=== PATIENT | female | born 1975 | race Caucasian/White ===

== ENCOUNTER → 2018-06-28 | Outpatient (REF) | payer MEDICARE, MEDICAID ==
[2018-06-28 14:18] LABS: VALPROIC ACID (DEPAKOTE) 70.8 UG/ML (50.0-100.0)
== END ==
LOC: M LAB REF 11:54
DX: F25.9 Schizoaffective disorder, unspecified (principal)
CPT/HCPCS: 80164

== ENCOUNTER → 2019-10-13 | Outpatient (CLI) | payer MEDICARE, MEDICAID ==
[2019-10-13 13:53] LABS: ALBUMIN 3.2 GM/DL (3.2-5.2); ALT/SGPT 28 U/L (12-78); BILIRUBIN,TOTAL 0.4 MG/DL (0.2-1.0); BLOOD UREA NITROGEN 9 MG/DL (7-18); CALCIUM LEVEL 8.1 MG/DL (8.5-10.1); CARBON DIOXIDE LEVEL 26 MEQ/L (21-32); CHLORIDE LEVEL 106 MEQ/L (98-107); GLOMERULAR FILTRATION RATE > 60.0 (>58); GLUCOSE, FASTING 92 MG/DL (70-100); POTASSIUM SERUM 4.4 MEQ/L (3.5-5.1); SODIUM LEVEL 140 MEQ/L (136-145); TOTAL PROTEIN 6.7 GM/DL (6.4-8.2)
[2019-10-13 14:36] LABS: HEMOGLOBIN A1c 5.7 %
== END ==
LOC: M PLALAB 09:55
PROVIDERS: ATTEND Nurse Practitioner Psychiatric/Mental Health
DX: F25.9 Schizoaffective disorder, unspecified (principal); Z79.899 Other long term (current) drug therapy

== ENCOUNTER 2022-05-29 00:07 | Inpatient (IN) | payer MEDICARE, MEDICAID ==
[~2022-05-29] VITALS: Ht 170.2 cm; Wt 72.5 kg
[2022-05-29 00:55] LABS: HEMATOCRIT 43.2 % (36.0-47.0); HEMOGLOBIN 14.7 g/dl (12.0-15.5); MEAN CORPUSCULAR HEMOGLOBIN 30.4 pg (27.0-33.0); MEAN CORPUSCULAR VOLUME 89.4 fl (80.0-96.0); PLATELET COUNT, AUTOMATED 234 10^3/uL (150-450); RED BLOOD COUNT 4.83 10^6/uL (4.00-5.40); WHITE BLOOD COUNT 9.3 10^3/uL (4.0-10.0)
[2022-05-29 01:26] LABS: HCG, SERUM QUALITATIVE NEGATIVE (NEGATIVE)
[2022-05-29 01:27] LABS: RSV AMPLIFICATION NEGATIVE (NEGATIVE)
[2022-05-29 01:32] LABS: ACETAMINOPHEN LEVEL < 2.0 UG/ML (10.0-30.0); ALBUMIN 3.8 GM/DL (3.2-5.2); ALT/SGPT 24 U/L (12-78); BILIRUBIN,DIRECT < 0.1 MG/DL (0.0-0.2); BILIRUBIN,TOTAL 0.2 MG/DL (0.2-1.0); BLOOD UREA NITROGEN 9 MG/DL (7-18); CALCIUM LEVEL 8.8 MG/DL (8.5-10.1); CARBON DIOXIDE LEVEL 23 MEQ/L (21-32); CHLORIDE LEVEL 109 MEQ/L (98-107); CREATININE FOR GFR 0.82 MG/DL (0.55-1.30); ETHYL ALCOHOL (ETHANOL) < 0.003 % (0.000-0.010); GLOMERULAR FILTRATION RATE > 60.0 (>58); GLUCOSE, FASTING 141 MG/DL (70-100); SALICYLATE LEVEL 18.9 MG/DL (5.0-30.0); SODIUM LEVEL 140 MEQ/L (136-145); THYROID STIMULATING HORMONE 0.661 uIU/ML (0.358-3.740); TOTAL PROTEIN 7.1 GM/DL (6.4-8.2)
[2022-05-29 01:54] LABS: AMPHETAMINES LEVEL URINE NEGATIVE (NEGATIVE); BARBITURATES URINE NEGATIVE (NEGATIVE); BENZODIAZEPINES URINE NEGATIVE (NEGATIVE); CANNABINOIDS URINE POSITIVE (NEGATIVE); COCAINE METABOLITE URINE NEGATIVE (NEGATIVE); METHADONE URINE NEGATIVE (NEGATIVE); OPIATES URINE NEGATIVE (NEGATIVE); PHENCYCLIDINE URINE NEGATIVE (NEGATIVE)
[2022-05-29] MEDS ORDERED: OLANZapine ORAL DISINTEGRATING TAB 5MG PO ONE (21:30)
[2022-05-30] MEDS ORDERED: LORazepam 2 MG TAB PO ONE (06:00)
[2022-05-30] MEDS ORDERED: OLANZapine ORAL DISINTEGRATING TAB 5MG PO ONE (06:00)
[2022-05-31] MEDS ORDERED: LORazepam 2 MG TAB PO STA (01:38)
[2022-05-31] MEDS ORDERED: HOME MED LIST COMPLETE! XX SCH (10:15)
[2022-05-31] MEDS ORDERED: OLANZapine 10 MG TAB PO ONE (19:25)
[2022-05-31] MEDS ORDERED: IBUPROFEN 600MG TAB PO ONE (19:25)
[2022-05-31] MEDS ORDERED: ALPRAZolam 0.5 MG TAB PO ONE (19:25)
[2022-06-05] MEDS ORDERED: LORazepam 2 MG/ML VIAL IM STA (08:22)
[2022-06-05] MEDS ORDERED: LORazepam 2 MG TAB PO ONE (08:25)
[2022-06-05] MEDS ORDERED: OLANZapine ORAL DISINTEGRATING TAB 5MG PO ONE (08:25)
[2022-06-05] MEDS ORDERED: diphenhydrAMINE 50MG/ML VIAL (J1200) IM ONE (08:25)
[2022-06-05] MEDS ORDERED: HALOPERIDOL 5MG/ML VIAL (J1630 PER 1) IM ONE (08:25)
[2022-06-05] MEDS ORDERED: LORazepam 2 MG TAB PO STA (15:48)
[2022-06-06] MEDS ORDERED: LORazepam 2 MG TAB PO ONE ×2 (04:40→07:50)
[2022-06-06] MEDS ORDERED: OLANZapine ORAL DISINTEGRATING TAB 5MG PO ONE (07:50)
[2022-06-06 12:07] LABS: RSV AMPLIFICATION NEGATIVE (NEGATIVE)
[2022-06-06] MEDS ORDERED: MAALOX 30 ML SUSP *UDC PO PRN (12:10)
[2022-06-06] MEDS ORDERED: MOM 30ML SUSPENSION UDC PO PRN (12:10)
[2022-06-06] MEDS: LORazepam 1 MG TAB PO PRN (14:28)
[2022-06-07 06:26] VITALS: BP 137/66
[2022-06-07] MEDS: NEOSPORIN TOP OINT 15GM TOP SCH ×2 (12:49→21:31)
[2022-06-07 16:01] VITALS: BP 130/60
[2022-06-07] MEDS: LORazepam 1 MG TAB PO PRN (19:14)
[2022-06-07] MEDS: PALIPERIDONE 3 MG ER TAB (INVEGA) PO SCH (21:31)
[2022-06-07] MEDS: DIVALPROEX 250 MG TAB PO SCH (21:31)
[2022-06-07] MEDS: ACETAMINOPHEN TAB 650MG DOSE (2X325MG) PO PRN (21:32)
[2022-06-08 06:22] VITALS: BP 115/58
[2022-06-08] MEDS: NEOSPORIN TOP OINT 15GM TOP SCH ×2 (09:30→22:39)
[2022-06-08] MEDS: ACETAMINOPHEN TAB 650MG DOSE (2X325MG) PO PRN (09:32)
[2022-06-08] MEDS: PALIPERIDONE 3 MG ER TAB (INVEGA) PO SCH ×2 (09:32→22:38)
[2022-06-08] MEDS: DIVALPROEX 250 MG TAB PO SCH ×2 (09:32→22:38)
[2022-06-09 07:01] VITALS: BP 131/78
[2022-06-09] MEDS: DIVALPROEX 250 MG TAB PO SCH ×2 (09:00→10:17)
[2022-06-09] MEDS: NEOSPORIN TOP OINT 15GM TOP SCH ×2 (10:17→20:28)
[2022-06-09 16:31] VITALS: BP 138/68
[2022-06-09] MEDS: DIVALPROEX 500 MG TAB PO SCH (20:27)
[2022-06-10 06:15] VITALS: BP 166/88
[2022-06-10] MEDS: DIVALPROEX 250 MG TAB PO SCH (08:37)
[2022-06-10] MEDS: NEOSPORIN TOP OINT 15GM TOP SCH ×2 (08:40→21:00)
[2022-06-10] MEDS: ACETAMINOPHEN TAB 650MG DOSE (2X325MG) PO PRN (12:06)
[2022-06-10] MEDS: LORazepam 1 MG TAB PO PRN (14:52)
[2022-06-10 16:24] VITALS: BP 133/60
[2022-06-10] MEDS: DIVALPROEX 500 MG TAB PO SCH (22:21)
[2022-06-10] MEDS: traZODone 50 MG TAB PO PRN (22:21)
[2022-06-11] MEDS: NEOSPORIN TOP OINT 15GM TOP SCH ×2 (09:36→20:42)
[2022-06-11] MEDS: DIVALPROEX 250 MG TAB PO SCH (09:37)
[2022-06-11] MEDS: DIVALPROEX 500 MG TAB PO SCH (20:42)
[2022-06-12] MEDS: DIVALPROEX 250 MG TAB PO SCH (09:35)
[2022-06-12] MEDS: NEOSPORIN TOP OINT 15GM TOP SCH ×2 (09:36→22:12)
[2022-06-12] MEDS: ACETAMINOPHEN TAB 650MG DOSE (2X325MG) PO PRN (10:42)
[2022-06-12] MEDS: LORazepam 2 MG TAB PO PRN (17:29)
[2022-06-12 17:38] VITALS: BP 168/72
[2022-06-12] MEDS: DIVALPROEX 500 MG TAB PO SCH (22:11)
[2022-06-13] MEDS: NEOSPORIN TOP OINT 15GM TOP SCH ×2 (09:00→20:12)
[2022-06-13] MEDS: DIVALPROEX 500 MG TAB PO SCH ×2 (09:41→20:12)
[2022-06-13] MEDS: ACETAMINOPHEN TAB 650MG DOSE (2X325MG) PO PRN (09:45)
[2022-06-13] MEDS: LORazepam 2 MG TAB PO PRN (11:08)
[2022-06-13 18:24] VITALS: BP 127/59
[2022-06-14] MEDS: DIVALPROEX 500 MG TAB PO SCH ×2 (08:39→22:30)
[2022-06-14] MEDS: LORazepam 2 MG TAB PO PRN (15:46)
[2022-06-14] MEDS: ACETAMINOPHEN TAB 650MG DOSE (2X325MG) PO PRN (15:47)
[2022-06-14 18:27] VITALS: BP 136/71
[2022-06-14] MEDS: traZODone 50 MG TAB PO PRN (22:30)
[2022-06-15 06:35] VITALS: BP 123/63
[2022-06-15] MEDS: DIVALPROEX 500 MG TAB PO SCH ×2 (13:47→21:05)
[2022-06-15] MEDS: diphenhydrAMINE 50MG CAP PO PRN (15:12)
[2022-06-15] MEDS: LORazepam 2 MG TAB PO PRN (15:41)
[2022-06-15 18:46] VITALS: BP 144/65
[2022-06-16 07:05] VITALS: BP 142/72
[2022-06-16] MEDS: DIVALPROEX 500 MG TAB PO SCH ×2 (10:23→20:43)
[2022-06-16] MEDS: LORazepam 2 MG TAB PO PRN (10:24)
[2022-06-16] MEDS: ACETAMINOPHEN TAB 650MG DOSE (2X325MG) PO PRN ×2 (10:24→20:44)
[2022-06-16] MEDS: diphenhydrAMINE 50MG CAP PO PRN ×2 (10:26→20:43)
[2022-06-16 18:34] VITALS: BP 136/68
[2022-06-17 06:35] VITALS: BP 125/59
[2022-06-17] MEDS: DIVALPROEX 500 MG TAB PO SCH ×2 (08:16→21:52)
[2022-06-17] MEDS: diphenhydrAMINE 50MG CAP PO PRN ×2 (08:16→14:33)
[2022-06-17] MEDS: ACETAMINOPHEN TAB 650MG DOSE (2X325MG) PO PRN ×2 (13:58→21:05)
[2022-06-17 18:34] VITALS: BP 140/74
[2022-06-17] MEDS: LORazepam 2 MG TAB PO PRN (19:39)
[2022-06-18] MEDS: diphenhydrAMINE 50MG CAP PO PRN ×3 (06:21→20:58)
[2022-06-18] MEDS: ACETAMINOPHEN TAB 650MG DOSE (2X325MG) PO PRN ×3 (06:22→20:58)
[2022-06-18 07:05] VITALS: BP 114/55
[2022-06-18] MEDS: DIVALPROEX 500 MG TAB PO SCH ×2 (14:27→20:58)
[2022-06-18 18:31] VITALS: BP 136/74
[2022-06-19] MEDS: DIVALPROEX 500 MG TAB PO SCH ×2 (09:42→20:28)
[2022-06-19] MEDS: diphenhydrAMINE 50MG CAP PO PRN ×2 (09:46→17:04)
[2022-06-19] MEDS: ACETAMINOPHEN TAB 650MG DOSE (2X325MG) PO PRN ×2 (09:46→17:06)
[2022-06-19 16:29] VITALS: BP_SYST 133; BP_SYST 140; BP_DIAS 67; BP_DIAS 80
[2022-06-19] MEDS: LORazepam 2 MG TAB PO PRN (18:27)
[2022-06-19] MEDS ORDERED: NICOTINE 21MG/24HR 1 EA TRANSDERMAL TD PRN (20:25)
[2022-06-20 06:27] VITALS: BP 120/60
[2022-06-20] MEDS: DIVALPROEX 500 MG TAB PO SCH ×2 (08:12→21:39)
[2022-06-20] MEDS: ACETAMINOPHEN TAB 650MG DOSE (2X325MG) PO PRN (12:05)
[2022-06-20] MEDS: diphenhydrAMINE 50MG CAP PO PRN (12:06)
[2022-06-20] MEDS: NICOTINE POLACRILEX 2 MG GUM PO PRN (12:59)
[2022-06-21] MEDS: DIVALPROEX 500 MG TAB PO SCH ×2 (09:52→20:02)
[2022-06-21] MEDS: NICOTINE POLACRILEX 2 MG GUM PO PRN (16:26)
[2022-06-21] MEDS: BENZTROPINE 1 MG TAB PO PRN (18:04)
[2022-06-21] MEDS: traZODone 50 MG TAB PO PRN (20:17)
[2022-06-21] MEDS: diphenhydrAMINE 50MG CAP PO PRN (20:33)
[2022-06-22] MEDS: BENZTROPINE 1 MG TAB PO PRN (08:09)
[2022-06-22] MEDS: DIVALPROEX 500 MG TAB PO SCH (08:10)
[2022-06-22] MEDS ORDERED: HALO10TA20 PO ×2 (09:44)
[2022-06-22] MEDS ORDERED: DEPA1TAB3 PO ×2 (09:44)
[2022-06-22] MEDS ORDERED: TRAZ-252 PO (09:44)
[2022-06-22] MEDS ORDERED: BENZ-52 PO (09:44)
== END 2022-06-22 12:26 | disposition home or self-care (01) | DRG 885 ==
LOC: M ED 00:07 → M ED INP 00:09 → M PSY 06-06 14:55
PROVIDERS: ADMIT Psychiatry & Neurology Psychiatry; ATTEND Psychiatry & Neurology Psychiatry
DX: F29 Unspecified psychosis not due to a substance or known physiological condition (principal); F31.2 Bipolar disorder, current episode manic severe with psychotic features; Z87.891 Personal history of nicotine dependence; R45.850 Homicidal ideations; L20.9 Atopic dermatitis, unspecified; F41.9 Anxiety disorder, unspecified

== ENCOUNTER 2022-08-06 11:42 | Emergency (ER) | payer MEDICARE, MEDICAID ==
[~2022-08-06] VITALS: Ht 170.2 cm; Wt 100.7 kg
[~2022-08-06 11:42] MED LIST: BENZ-52 PO; DEPA1TAB3 PO; HALO10TA20 PO; TRAZ-252 PO
[2022-08-06 11:43] VITALS: BP 148/79
[2022-08-07] MEDS ORDERED: BENZ-52 PO (08:13)
[2022-08-07] MEDS ORDERED: HALO10TA20 PO (08:13)
[2022-08-07] MEDS ORDERED: DIVA500T94 PO (08:13)
[2022-08-07] MEDS ORDERED: TRAZ1TAB10 PO (08:13)
[2022-08-07] MEDS ORDERED: HALO5TAB33 PO (08:13)
== END 2022-08-06 11:56 | disposition left against medical advice (07) ==
LOC: M ED 11:42
DX: Z53.21 Procedure and treatment not carried out due to patient leaving prior to being seen by health care provider (principal)

== ENCOUNTER 2022-08-06 17:50 | Inpatient (IN) | payer MEDICARE, MEDICAID ==
[~2022-08-06] VITALS: Ht 170.2 cm; Wt 99.4 kg
[2022-08-06] MEDS ORDERED: traZODone 50 MG TAB PO ONE (19:45)
[2022-08-06 19:55] LABS: AMPHETAMINES LEVEL URINE NEGATIVE (NEGATIVE); BARBITURATES URINE NEGATIVE (NEGATIVE); BENZODIAZEPINES URINE NEGATIVE (NEGATIVE); CANNABINOIDS URINE POSITIVE (NEGATIVE); COCAINE METABOLITE URINE NEGATIVE (NEGATIVE); METHADONE URINE NEGATIVE (NEGATIVE); OPIATES URINE NEGATIVE (NEGATIVE); PHENCYCLIDINE URINE NEGATIVE (NEGATIVE)
[2022-08-06 19:57] LABS: HEMOGLOBIN 14.4 g/dl (12.0-15.5); MEAN CORPUSCULAR HGB CONC 35.1 g/dl (32.0-36.5); MEAN CORPUSCULAR VOLUME 88.2 fl (80.0-96.0); PLATELET COUNT, AUTOMATED 243 10^3/uL (150-450); RED BLOOD COUNT 4.65 10^6/uL (4.00-5.40); WHITE BLOOD COUNT 10.1 10^3/uL (4.0-10.0)
[2022-08-06 20:27] LABS: RSV AMPLIFICATION NEGATIVE (NEGATIVE)
[2022-08-06 20:32] LABS: ACETAMINOPHEN LEVEL < 2.0 UG/ML (10.0-30.0); ALBUMIN 3.4 GM/DL (3.2-5.2); ALT/SGPT 20 U/L (12-78); BILIRUBIN,DIRECT 0.1 MG/DL (0.0-0.2); BILIRUBIN,TOTAL 0.4 MG/DL (0.2-1.0); BLOOD UREA NITROGEN 5 MG/DL (7-18); CALCIUM LEVEL 8.4 MG/DL (8.5-10.1); CARBON DIOXIDE LEVEL 24 MEQ/L (21-32); CHLORIDE LEVEL 100 MEQ/L (98-107); CREATININE FOR GFR 0.59 MG/DL (0.55-1.30); ETHYL ALCOHOL (ETHANOL) 0.094 % (0.000-0.010); GLOMERULAR FILTRATION RATE > 60.0 (>58); GLUCOSE, FASTING 120 MG/DL (70-100); POTASSIUM SERUM 3.8 MEQ/L (3.5-5.1); SALICYLATE LEVEL 4.6 MG/DL (5.0-30.0); SODIUM LEVEL 134 MEQ/L (136-145); THYROID STIMULATING HORMONE 0.612 uIU/ML (0.358-3.740); TOTAL PROTEIN 7.2 GM/DL (6.4-8.2)
[2022-08-06] MEDS ORDERED: DIVALPROEX 500 MG TAB PO ONE (22:05)
[2022-08-07] MEDS ORDERED: TRAZ1TAB10 PO (08:13)
[2022-08-07] MEDS ORDERED: HALO10TA20 PO (08:13)
[2022-08-07] MEDS ORDERED: HALO5TAB33 PO (08:13)
[2022-08-07] MEDS ORDERED: BENZ-52 PO (08:13)
[2022-08-07] MEDS ORDERED: DIVA500T94 PO (08:13)
[2022-08-07] MEDS ORDERED: HOME MED LIST COMPLETE! XX SCH (08:15)
[2022-08-07] MEDS: BENZTROPINE 1 MG TAB PO SCH ×2 (08:32→21:03)
[2022-08-07] MEDS: DIVALPROEX 500 MG TAB PO SCH (21:02)
[2022-08-08] MEDS: traZODone 50 MG TAB PO PRN (04:51)
[2022-08-08] MEDS ORDERED: NICOTINE 14 MG/24 HR TRANSDERMAL TD ONE (06:25)
[2022-08-08] MEDS: BENZTROPINE 1 MG TAB PO SCH ×2 (09:25→22:08)
[2022-08-08] MEDS ORDERED: NICOTINE 21MG/24HR 1 EA TRANSDERMAL TD ONE (09:30)
[2022-08-08] MEDS: DIVALPROEX 500 MG TAB PO SCH (22:08)
[2022-08-09] MEDS: BENZTROPINE 1 MG TAB PO SCH ×2 (11:12→20:05)
[2022-08-09 12:31] LABS: RSV AMPLIFICATION NEGATIVE (NEGATIVE)
[2022-08-09] MEDS ORDERED: MOM 30ML SUSPENSION UDC PO PRN (13:50)
[2022-08-09] MEDS ORDERED: traZODone 50 MG TAB PO PRN (13:50)
[2022-08-09] MEDS ORDERED: LORazepam 2 MG TAB PO PRN (13:50)
[2022-08-09 15:00] VITALS: BP 128/74
[2022-08-09 15:10] VITALS: BP 128/74
[2022-08-09] MEDS: MULTIVITAMINS/MINERALS THERAP 1 TAB PO SCH (15:21)
[2022-08-09] MEDS: FOLIC ACID 1MG TAB PO SCH (15:21)
[2022-08-09] MEDS: NICOTINE 21MG/24HR 1 EA TRANSDERMAL TD SCH (15:21)
[2022-08-09] MEDS: MAALOX 30 ML SUSP *UDC PO PRN (16:45)
[2022-08-09 18:27] VITALS: BP 118/66
[2022-08-09] MEDS: DIVALPROEX 500 MG TAB PO SCH (20:05)
[2022-08-09] MEDS: THIAMINE 100 MG TAB PO SCH (20:05)
[2022-08-10 06:32] VITALS: BP_SYST 128; BP_SYST 135; BP_DIAS 66; BP_DIAS 85
[2022-08-10 07:30] VITALS: BP 135/85
[2022-08-10] MEDS: BENZTROPINE 1 MG TAB PO SCH (07:58)
[2022-08-10] MEDS: MULTIVITAMINS/MINERALS THERAP 1 TAB PO SCH (07:58)
[2022-08-10] MEDS: FOLIC ACID 1MG TAB PO SCH (07:58)
[2022-08-10] MEDS: THIAMINE 100 MG TAB PO SCH ×2 (07:59→20:04)
[2022-08-10] MEDS: NICOTINE 21MG/24HR 1 EA TRANSDERMAL TD SCH (07:59)
[2022-08-10] MEDS ORDERED: BENZTROPINE 2 MG TAB PO ONE (10:40)
[2022-08-10 14:00] VITALS: BP 126/62
[2022-08-10] MEDS: MAALOX 30 ML SUSP *UDC PO PRN ×2 (17:11→21:16)
[2022-08-10 18:35] VITALS: BP 126/62
[2022-08-10] MEDS: diphenhydrAMINE 25MG CAP PO PRN (18:56)
[2022-08-10] MEDS: traZODone 50 MG TAB PO PRN (20:03)
[2022-08-10] MEDS: DIVALPROEX 500 MG TAB PO SCH (20:03)
[2022-08-10] MEDS: BENZTROPINE 2 MG TAB PO SCH (20:04)
[2022-08-11 06:10] VITALS: BP 145/79
[2022-08-11] MEDS: NICOTINE 21MG/24HR 1 EA TRANSDERMAL TD SCH (08:21)
[2022-08-11] MEDS: FOLIC ACID 1MG TAB PO SCH (08:22)
[2022-08-11] MEDS: BENZTROPINE 2 MG TAB PO SCH ×2 (08:22→20:02)
[2022-08-11] MEDS: MULTIVITAMINS/MINERALS THERAP 1 TAB PO SCH (08:23)
[2022-08-11] MEDS: MAALOX 30 ML SUSP *UDC PO PRN ×4 (09:47→21:55)
[2022-08-11] MEDS: diphenhydrAMINE 25MG CAP PO PRN ×2 (14:48→23:25)
[2022-08-11 18:20] VITALS: BP 153/92
[2022-08-11] MEDS: IBUPROFEN 400MG TAB PO PRN (19:25)
[2022-08-11] MEDS: DIVALPROEX 500 MG TAB PO SCH (20:03)
[2022-08-11] MEDS: traZODone 50 MG TAB PO PRN (20:03)
[2022-08-12] MEDS: NICOTINE 21MG/24HR 1 EA TRANSDERMAL TD SCH (08:22)
[2022-08-12] MEDS: FOLIC ACID 1MG TAB PO SCH (08:22)
[2022-08-12] MEDS: MULTIVITAMINS/MINERALS THERAP 1 TAB PO SCH (08:22)
[2022-08-12] MEDS: BENZTROPINE 2 MG TAB PO SCH ×2 (08:22→20:02)
[2022-08-12] MEDS: diphenhydrAMINE 25MG CAP PO PRN ×2 (08:56→16:24)
[2022-08-12] MEDS: IBUPROFEN 400MG TAB PO PRN ×2 (09:29→15:45)
[2022-08-12 10:11] LABS: CHOLESTEROL RISK RATIO 4.39 (<5); HDL CHOLESTEROL 39.1 MG/DL (>40); LDL CHOLESTEROL 112.3 MG/DL (<100)
[2022-08-12] MEDS: MAALOX 30 ML SUSP *UDC PO PRN ×2 (13:20→17:33)
[2022-08-12 18:24] VITALS: BP 127/58
[2022-08-12] MEDS: traZODone 50 MG TAB PO PRN (20:02)
[2022-08-12] MEDS: DIVALPROEX 500 MG TAB PO SCH (20:02)
[2022-08-13] MEDS: IBUPROFEN 400MG TAB PO PRN ×2 (03:23→13:03)
[2022-08-13 06:00] VITALS: BP 148/92
[2022-08-13] MEDS: diphenhydrAMINE 25MG CAP PO PRN ×3 (07:27→20:54)
[2022-08-13] MEDS: FOLIC ACID 1MG TAB PO SCH (08:08)
[2022-08-13] MEDS: BENZTROPINE 2 MG TAB PO SCH ×2 (08:08→17:34)
[2022-08-13] MEDS: MULTIVITAMINS/MINERALS THERAP 1 TAB PO SCH (08:09)
[2022-08-13] MEDS: NICOTINE 21MG/24HR 1 EA TRANSDERMAL TD SCH ×2 (09:00→15:58)
[2022-08-13] MEDS: MAALOX 30 ML SUSP *UDC PO PRN (09:52)
[2022-08-13 16:50] VITALS: BP 154/74
[2022-08-13] MEDS ORDERED: BENZTROPINE 1 MG TAB PO PRN (17:30)
[2022-08-13] MEDS: traZODone 50 MG TAB PO PRN (20:03)
[2022-08-13] MEDS: DIVALPROEX 500 MG TAB PO SCH (20:03)
[2022-08-14 06:25] VITALS: BP 141/72
[2022-08-14] MEDS: MULTIVITAMINS/MINERALS THERAP 1 TAB PO SCH (08:15)
[2022-08-14] MEDS: BENZTROPINE 2 MG TAB PO SCH (08:15)
[2022-08-14] MEDS: FOLIC ACID 1MG TAB PO SCH (08:15)
[2022-08-14] MEDS: NICOTINE 21MG/24HR 1 EA TRANSDERMAL TD SCH (09:00)
[2022-08-14] MEDS ORDERED: TRAZ-252 PO (10:23)
[2022-08-14] MEDS ORDERED: NICO21PAT TD (10:23)
[2022-08-14] MEDS ORDERED: HALO10TA20 PO (10:23)
[2022-08-14] MEDS ORDERED: DIVA500T94 PO (10:23)
[2022-08-14] MEDS ORDERED: BENZ2TAB5 PO (10:23)
[2022-08-14] MEDS ORDERED: HALO5TAB33 PO (10:23)
[2022-08-14] MEDS: MAALOX 30 ML SUSP *UDC PO PRN (11:31)
== END 2022-08-14 13:42 | disposition home or self-care (01) | DRG 885 ==
LOC: M ED 17:50 → M ED INP 08-09 14:12 → M PSY 08-09 15:00
PROVIDERS: ADMIT Student in an Organized Health Care Education/Training Program; ATTEND Student in an Organized Health Care Education/Training Program
DX: F25.0 Schizoaffective disorder, bipolar type (principal); F10.10 Alcohol abuse, uncomplicated; F12.90 Cannabis use, unspecified, uncomplicated; Z79.899 Other long term (current) drug therapy; F41.9 Anxiety disorder, unspecified; L30.9 Dermatitis, unspecified